=== PATIENT | female | born 1975 | race Caucasian/White ===

== ENCOUNTER 2017-08-11 23:52 | Emergency (ER) | payer SELFPAY ==
[2017-08-12 00:13] VITALS: BP 146/68; PULSE 66; RESP 18; TEMP 98.4; O2SAT 98
[2017-08-12] MEDS ORDERED: FLUT1INH INH (01:36)
[2017-08-12] MEDS ORDERED: LISI10TA3 PO (01:36)
[2017-08-12] MEDS ORDERED: IBUP1TAB7 PO (01:56)
[2017-08-12] MEDS ORDERED: BACT800T5 PO (01:56)
[2017-08-12] MEDS ORDERED: CEPH-460 PO (01:56)
[2017-08-12] MEDS ORDERED: NORC5TAB PO (01:56)
--- NOTE | 2017-08-12 01:56 | PD ---
HPI Chief Complaint: Skin Problem Time Seen by Provider: 01:42 Travel History International Travel<30 days: No Contact w/Intl Traveler<30days: No Traveled to known affect area: No History of Present Illness HPI 42-year-old female presents emergency department for evaluation of a painful lesion in her right nare that she noticed 2 days ago. She felt it was a pimple initially so she squeezed it. It is increased in size and become reddened and constantly painful. She states it is throbbing. There is a purulent drainage from it. Denies any fever chills. No recent trauma. She is no other symptoms to report. PFSH Past Medical History Asthma: Yes Cancer: Yes (hx skin ) COPD: Yes Diminished Hearing: No Hypertension: Yes Tetanus Vaccination: Unknown Influenza Vaccination: No ?: Not LMP: 08/03/17 Past Surgical History Other Surgery: Yes (skin cancer removed from neck) Social History Alcohol Use: No Tobacco Use: Yes (1 ppd) Substance Use: No Allergies-Medications (Allergen,Severity, Reaction): Coded Allergies: No Known Allergies (Unverified , 08/12/17) Reported Meds & Prescriptions Reported Meds & Active Scripts Active Bactrim DS (Sulfamethoxazole-Trimethoprim) 800-160 Mg Tab 1 Tab PO BID Keflex (Cephalexin) 500 Mg Cap 500 Mg PO Q6H 5 Days Ibuprofen 800 Mg Tab 800 Mg PO Q8H PRN [place] (Hydrocodone-Acetaminophen) 5 Mg-325 Mg Tab 1 Tab PO Q6H PRN Reported Breo Ellipta Inh (Fluticasone/Vilanterol) 100-25 Mcg/Act Inh 1 Puff INH DAILY Use daily at the same time. Lisinopril 10 Mg Tab 10 Mg PO DAILY Review of Systems Except as stated in HPI: all other systems reviewed are Neg Physical Exam Narrative GENERAL: Well-nourished, well-developed female patient in no acute distress SKIN: Focused skin assessment warm/dry. HEAD: Normocephalic. EYES: No scleral icterus. No injection or drainage. ENT: Mucosa pink and moist. No erythema or exudates. No uvular edema. No uvular , palatal, or tonsillar deviation. Airway patent. 1 cm raised lesion on the medial right naris. There is fluctuance with a purulent drainage from the top. Nasal turbinates otherwise appear normal without nasal blood, purulent drainage or septal hematoma. NECK: Supple, trachea midline. No JVD or lymphadenopathy. CARDIOVASCULAR: Regular rate and rhythm without murmurs, gallops, or rubs. RESPIRATORY: Breath sounds equal bilaterally. No accessory muscle use. GASTROINTESTINAL: Abdomen soft, non-tender, nondistended. MUSCULOSKELETAL: No cyanosis, or edema. BACK: Nontender without obvious deformity. No CVA tenderness. Data Data Last Documented VS Vital Signs Date Time Temp Pulse Resp B/P (MAP) Pulse Ox O2 Delivery O2 Flow Rate FiO2 08/12/17 00:13 98.4 66 18 146/68 (94) 98 Orders Orders Wound Culture And Gram Stain (08/12/17 01:52) Acetamin-Hydrocod 325-5 Mg ([place] 5-325 (08/12/17 02:00) Sulfamet-Trimeth Ds 800-160 Mg (Bactrim (08/12/17 02:00) Cephalexin (Keflex) (08/12/17 02:00) Ed Discharge Order (08/12/17 01:53) MDM Medical Decision Making Medical Screen Exam Complete: Yes Emergency Medical Condition: Yes Medical Record Reviewed: Yes Differential Diagnosis Abscess versus folliculitis versus erysipelas versus cellulitis Narrative Course 42-year-old female presents emergency department for evaluation of painful lesion in her right naris. Physical exam is consistent with an abscess. I&D is complete. Cultures obtained. Patient is treated for pain and provided oral antibiotic first dose here. She is counseled on care and agrees to return immediately with acute worsening symptoms. Procedures Procedure Narrative INCISION AND DRAINAGE OF ABSCESS: The area was prepped and was sterilely draped. The area was properly anesthetized. A number 11 scalpel was used to make a 0.5-cm incision across the area of the abscess. Cultures were obtained. The abscess was drained an irrigated with normal saline. Patient tolerated well Diagnosis Primary Impression: Nasal abscess Referrals: Primary Care Physician Patient Instructions: Abscess (ED), General Instructions Departure Forms: Tests/Procedures, Work Release Enter return to work date: August 14, 2017 Additional Instructions: Follow-up with a primary care provider Avoid squeezing the area Return immediately with any acute worsening symptoms Med/Other Pt SpecificInfo: Prescription(s) given Scripts Sulfamethoxazole-Trimethoprim (Bactrim DS) 800-160 Mg Tab 1 TAB PO BID for Infection, #20 TAB 0 Refills Prov: Marah Nolan 08/12/17 Cephalexin (Keflex) 500 Mg Cap 500 MG PO Q6H for Infection for 5 Days, #20 CAP 0 Refills Prov: Marah Nolan 08/12/17 Ibuprofen (Ibuprofen) 800 Mg Tab 800 MG PO Q8H Y for Pain/Inflammation, #30 TAB 0 Refills Prov: Marah Nolan 08/12/17 Hydrocodone-Acetaminophen ([place]) 5 Mg-325 Mg Tab 1 TAB PO Q6H Y for PAIN GREATER THAN 6, #12 TAB 0 Refills Prov: Marah Nolan 08/12/17 Disposition: 01 DISCHARGE HOME Condition: Stable Marah Nolan Aug 12, 2017 01:56
[2017-08-12] MEDS ORDERED: SULFAMETHOXAZOLE-TRIMETHOPRIM DS 800-160 MG TAB PO ONE (02:00)
[2017-08-12] MEDS ORDERED: ACETAMINOPHEN/HYDROcodone 325 MG/5 MG TAB PO ONE (02:00)
[2017-08-12] MEDS ORDERED: CEPHALEXIN MONOHYDRATE 500 MG CAP PO ONE (02:00)
== END 2017-08-12 02:08 | disposition home or self-care (01) ==
LOC: EDBD 23:52 → NEPD 23:52
DX: J32.9 Chronic sinusitis, unspecified (principal); F17.200 Nicotine dependence, unspecified, uncomplicated; I10 Essential (primary) hypertension; J44.9 Chronic obstructive pulmonary disease, unspecified
CPT/HCPCS: 10060; 86403; 87070; 87186